=== PATIENT | male | born 1995 | race African-American/Black ===

== ENCOUNTER 2018-11-19 18:39 | Emergency (ER) | payer OTHER ==
[~2018-11-19] VITALS: Ht 180.3 cm; Wt 90.7 kg
[2018-11-19] MEDS ORDERED: predniSONE 20 MG TAB PO ONE (23:15)
[2018-11-19] MEDS ORDERED: diphenhydrAMINE 25 MG CAP PO ONE (23:15)
[2018-11-19] MEDS ORDERED: PRED20TA PO (23:20)
[2018-11-19 23:29] VITALS: BP 133/78
[2018-11-20] MEDS ORDERED: PRED20TA PO (00:56)
== END 2018-11-19 23:36 | disposition home or self-care (01) ==
LOC: M ED 18:39
DX: L29.9 Pruritus, unspecified (principal); L50.9 Urticaria, unspecified; T78.49XA Other allergy, initial encounter; X58.XXXA Exposure to other specified factors, initial encounter; Y92.89 Other specified places as the place of occurrence of the external cause; I10 Essential (primary) hypertension; G43.909 Migraine, unspecified, not intractable, without status migrainosus

== ENCOUNTER 2018-11-21 20:17 | Emergency (ER) | payer OTHER ==
[~2018-11-21] VITALS: Ht 177.8 cm; Wt 88.6 kg
[~2018-11-21 20:17] MED LIST: PRED20TA PO
[2018-11-21] MEDS ORDERED: diphenhydrAMINE INJ 50MG/ML VIAL (J1200) IV STA (20:35)
[2018-11-21] MEDS ORDERED: dexameTHASONE 20 MG/5 ML VIAL (J1100) IV ONE (20:45)
[2018-11-21 22:15] VITALS: BP 140/82
== END 2018-11-21 22:29 | disposition home or self-care (01) ==
LOC: M ED 20:17
DX: T78.40XA Allergy, unspecified, initial encounter (principal); R22.0 Localized swelling, mass and lump, head; X58.XXXA Exposure to other specified factors, initial encounter; Y92.89 Other specified places as the place of occurrence of the external cause
CPT/HCPCS: 96374; 96375; 99284; J1100; J1200